=== PATIENT | male | born 1955 | race Caucasian/White ===

== ENCOUNTER → 2017-08-10 | Outpatient (CLI) | payer BC ==
[~2017-08-10] MED LIST: ASCA500 PO; CMDUNK PO; EZET10TA63 PO; GLC500 PO; MULT-506 PO; NCNUNK PO; OMEG10007 PO; OXYSR20 PO; PRCUNK PO; SERT-234 PO; SIMV10TA2 PO; VTMEUNK PO
--- NOTE | 2017-08-10 09:32 | DIAGNOSTIC IMAGING REPORT ---
CHEST 2 VIEWS ROUTINE HISTORY: 61 years-old Male COUGH,DYSPNEA,PT TO CPL AFTER PLEASE acute cough. COMPARISON: Chest radiograph 07/30/2013 TECHNIQUE: Frontal and lateral views of the chest FINDINGS: Cardiomediastinal and hilar silhouettes are within normal limits. There is atherosclerosis of the aorta. No pneumothorax, pleural effusion or focal airspace consolidation. No overt pulmonary edema. Bones of the chest appear grossly intact. IMPRESSION: No acute cardiopulmonary process. The above report was generated using voice recognition software. It may contain grammatical, syntax or spelling errors. Electronically signed by: Thomas Maldonado M.D. 08/10/2017 9:30 AM Dictated Date/Time: 08/10/2017 9:30 AM
== END | disposition home or self-care (01) ==
LOC: C.CPL 09:00
DX: R05 Cough (principal); R06.00 Dyspnea, unspecified

== ENCOUNTER → 2017-08-24 | Outpatient (CLI) | payer BC ==
[~2017-08-24] MED LIST changes: +PERFLUTREN LIPID MICROSPHERE (DEFINITY) IV ONE
--- NOTE | 2017-08-24 12:27 | EXERCISE STRESS ECHO ---
*NOTICE TO RECEIVING DEMOCRAT AGENCY This information is strictly Confidential and protected under [place] law. [place] law prohibits you from making any further disclosure of this information unless further disclosure is expressly permitted by the written consent of the person to whom it pertains or is authorized by law. A general authorization for the release of medical or other information is not sufficient for this purpose. Hospital accepts no responsibility if the information is made available to any other person, INCLUDING THE PATIENT. Interpretation Summary * Name: ABHI AUSTIN JR Study Date: 08/24/2017 09:42 AM BP: 140/78 mmHg * Patient Location: [facility] HR: 62 * : 1955 (M/d/yyyy) Gender: Male Height: 70 in * Age: 61 yrs Ethnicity: [place] Weight: 274 lb * Ordering Physician: Tyree Rodriguez * Referring Physician: Tyree Rodriguez D.O. * Performed By: Vicky Franks RDCS * * Reason For Study: Syncope, exertional dyspnea * BSA: 2.4 m2 * -- Conclusions -- * 1. Normal stress echocardiogram at 9.6 METS and peak heart rate of 87% predicted maximum. * 2. No exercise-induced chest pain. * 3. No EKG changes. * 4. Baseline echocardiogram notes normal left ventricular systolic function with mild left ventricular hypertrophy. Procedure Details * ECHOEX, CPT #[id number] * ECHO DOPPLER, CPT #[id number] * ECHO COLOR FLOW, CPT #[id number] * A contrast injection of Definity was performed to improve assessment of LV function. * Contrast was injected into an intravenous site in the left arm. * One vial of Definity ultrasound contrast was diluted in normal saline to a total volume of 10 ml. A total of '5' ml of solution was administered during imaging. * Lot # [id number] of Definity utilized for procedure. * Expiration date AUG 22. * The attending nurse who injected the contrast agent was Rosie Sofia RN. Left Ventricle * The left ventricle is normal in size. * There is mild concentric left ventricular hypertrophy. * Ejection Fraction = 65-70%. * Left ventricular systolic function is normal. * Resting wall motion: Normal. Stress wall motion: Appropriate increase in Left ventricular systolic function and decrease in cavity size. No stress induced segmental wall motion abnormalities. Right Ventricle * The right ventricle is grossly normal size. * The right ventricular systolic function is normal as assessed by tricuspid annular plane systolic excursion (TAPSE) (normal >1.5 cm). Atria * The left atrium is mildly dilated. * Right atrial size is normal. * No ASD detected; PFO is not assessed. Mitral Valve * The mitral valve is grossly normal. * There is no mitral valve stenosis. * Significant mitral regurgitation is absent. Tricuspid Valve * The tricuspid valve is not well visualized, but is grossly normal. * No significant tricuspid stenosis. * Significant tricuspid regurgitation is absent. Aortic Valve * The aortic valve is tricuspid. The leaflet thickness if normal. There is no aortic stenosis, and no significant insufficiency. * The aortic valve opens well. * Aortic valve sclerosis mild, without significant aortic valvular stenosis. * No aortic regurgitation is present. Pulmonic Valve * The pulmonary valve is not well seen, but the Doppler examination is normal without significant regurgitation or stenosis. Great Vessels * The aortic root is normal size. * The pulmonary is not well visualized. Pericardium * There is no pericardial effusion. Stress Parameters * Normal baseline electrocardiogram. * Stress ECG: No ST changes. No arrhythmias. * The stress portion of this study was personally supervised by the undersigned interpreting physician. * Rest heart rate was '62' BPM. * Rest blood pressure was '140/78' * Maximum heart rate achieved was 139 bpm. * Maximum heart rate was 87 % of maximum age-predicted heart rate. * Maximum blood pressure was '176/76' * Total exercise time was '7:44' * Maximum exercise MET level achieved was '9.60' METS * Maximum treadmill speed was '3.40' miles per hour. * Maximum treadmill elevation was '14.00'% grade. * Exercise was terminated due to 'achieving target heart rate' Left Ventricular Diastolic Function * Grade I diastolic dysfunction, (abnormal relaxation pattern). MMode 2D Measurements and Calculations IVSd 1.4 cm LVIDd 4.6 cm LVIDs 2.8 cm LVPWd 1.5 cm IVS/LVPW 0.89 FS 39.2 % EDV(Teich) 99.5 ml ESV(Teich) 30.2 ml EF(Teich) 69.7 % EDV(cubed) 100.1 ml ESV(cubed) 22.5 ml EF(cubed) 77.5 % LV mass(C)d 272.6 grams LV mass(C)dI 114.3 grams/m\S\2 SV(Teich) 69.4 ml SI(Teich) 29.1 ml/m\S\2 SV(cubed) 77.6 ml SI(cubed) 32.5 ml/m\S\2 Ao root diam 3.6 cm Ao root area 10.1 cm\S\2 ACS 2.3 cm LA dimension 4.2 cm asc Aorta Diam 3.7 cm LA/Ao 1.2 LVAd ap4 36.7 cm\S\2 LVLd ap4 8.4 cm EDV(MOD-sp4) 129.8 ml EDV(sp4-el) 136.2 ml LVAs ap4 17.0 cm\S\2 LVLs ap4 6.7 cm ESV(MOD-sp4) 34.7 ml ESV(sp4-el) 36.7 ml EF(MOD-sp4) 73.2 % EF(sp4-el) 73.1 % LVAd ap2 35.3 cm\S\2 LVLd ap2 7.7 cm EDV(MOD-sp2) 131.2 ml EDV(sp2-el) 136.6 ml LVAs ap2 17.9 cm\S\2 LVLs ap2 6.7 cm ESV(MOD-sp2) 41.2 ml ESV(sp2-el) 40.6 ml EF(MOD-sp2) 68.6 % EF(sp2-el) 70.3 % LVLd %diff -8.26 % EDV(MOD-bp) 134.0 ml LVLs %diff -0.10 % ESV(MOD-bp) 37.6 ml EF(MOD-bp) 71.9 % SV(MOD-sp4) 95.0 ml SI(MOD-sp4) 39.8 ml/m\S\2 SV(MOD-sp2) 90.0 ml SI(MOD-sp2) 37.7 ml/m\S\2 SV(MOD-bp) 96.4 ml SI(MOD-bp) 40.4 ml/m\S\2 SV(sp4-el) 99.5 ml SI(sp4-el) 41.7 ml/m\S\2 SV(sp2-el) 96.0 ml SI(sp2-el) 40.2 ml/m\S\2 Doppler Measurements and Calculations MV E max moises 58.5 cm/sec MV A max moises 61.1 cm/sec MV E/A 0.96 MV dec time 0.35 sec Ao V2 max 120.9 cm/sec Ao max PG 5.8 mmHg Ao max PG (full) 1.3 mmHg LV V1 max PG 4.6 mmHg LV V1 max 106.8 cm/sec PA V2 max 74.9 cm/sec PA max PG 2.2 mmHg PA acc slope 370.6 cm/sec\S\2 PA acc time 0.15 sec TR max moises 251.5 cm/sec PA pr(Accel) 10.3 mmHg
== END | disposition home or self-care (01) ==
LOC: C.CPL 09:30
DX: R06.00 Dyspnea, unspecified (principal); R55 Syncope and collapse